=== PATIENT | male | born 1955 | race Caucasian/White ===

== ENCOUNTER 2022-09-19 17:46 | Inpatient (IN) | payer OTHER ==
[~2022-09-19] VITALS: Ht 165.1 cm; Wt 67.1 kg
--- NOTE | 2022-09-19 18:00 | NUR ---
The patient is [id number] home, found by roomate altered w/ initial BG 44, d10 given station captain. The patient is verbally responsive to his name. Denies pain. In room air. Respiration regular and unlabored. The patient is attached to the monitor. Will continue to monitor the patient.
--- NOTE | 2022-09-19 18:17 | NUR ---
THE PATIENT IS TAKEN TO CT [facility]IA [facility]
[2022-09-19 18:25] LABS: BASOPHILS % (AUTO) 0.3 % (0.0-2.0); EOSINOPHILS % (AUTO) 1.8 % (0.0-6.0); HEMATOCRIT 43 % (39-51); HEMOGLOBIN 14.8 g/dL (13.5-17.5); LYMPHOCYTES # (AUTO) 0.8 K/uL (0.8-4.8); LYMPHOCYTES % (AUTO) 7.7 % (20.0-44.0); MEAN CORPUSCULAR HGB CONC 34 g/dl (31.0-36.0); MEAN CORPUSCULAR VOLUME 90 fL (80-96); MONOCYTES # (AUTO) 0.7 K/uL (0.1-1.30); MONOCYTES % (AUTO) 6.5 % (2.0-12.0); NEUTROPHILS # (AUTO) 8.6 K/uL (1.8-8.9); NEUTROPHILS % (AUTO) 83.7 % (43.0-81.0); PLATELET COUNT (AUTO) 281 K/uL (150-450); WHITE BLOOD COUNT (AUTO) 10.2 K/uL (4.3-11.0)
[2022-09-19] MEDS ORDERED: Sodium Chloride 77 MEQ in IV 10% DEXTROSE 1,000 ML IV PRN (18:30)
--- NOTE | 2022-09-19 18:36 | NUR ---
THE PATIENT IS BACK FROM CT VIA [facility]
[2022-09-19 18:45] LABS: SERUM AMMONIA 21 umol/L (11-32)
[2022-09-19 18:50] LABS: ALANINE AMINOTRANSFERASE 22 U/L (12-78); ALBUMIN 3.6 g/dL (3.4-5.0); ALKALINE PHOSPHATASE 140 U/L (46-116); ASPARTATE AMINOTRANSFERASE 20 U/L (15-37); BILIRUBIN,DIRECT 0.1 mg/dL (0.0-0.2); BILIRUBIN,TOTAL 0.3 mg/dL (0.2-1.0); CALCIUM, SERUM 8.8 mg/dL (8.5-10.1); CARBON DIOXIDE 25 mmol/L (21-32); CHLORIDE 100 mmol/L (98-107); CREATININE 1.3 mg/dL (0.6-1.3); GLUCOSE 87 mg/dL (74-106); POTASSIUM 3.8 mmol/L (3.5-5.1); SODIUM SERUM 135 mmol/L (136-145); UREA NITROGEN, BLOOD 17 mg/dL (7-18)
[2022-09-19 18:51] LABS: ALCOHOL, BLOOD < 3 mg/dL (0-10)
[2022-09-19] MEDS ORDERED: NITR0.4T48 SL (19:04)
[2022-09-19] MEDS ORDERED: METF-442 PO (19:04)
[2022-09-19] MEDS ORDERED: ESCI10TA (19:04)
[2022-09-19] MEDS ORDERED: METO-357 PO (19:04)
[2022-09-19] MEDS ORDERED: ASPI-1169 PO (19:04)
[2022-09-19] MEDS ORDERED: INSU100I4 SQ (19:04)
[2022-09-19] MEDS ORDERED: GABA600T12 PO (19:04)
[2022-09-19] MEDS ORDERED: ALLO100T PO (19:04)
[2022-09-19] MEDS ORDERED: ARIP300S3 (19:04)
[2022-09-19] MEDS ORDERED: ATOR10TA PO (19:04)
[2022-09-19] MEDS ORDERED: AMLO-62 (19:04)
--- NOTE | 2022-09-19 19:07 | NUR ---
URINE COLLECTED AND SENT TO THE LAB
[2022-09-19 19:16] LABS: THYROID STIMULATING HORMONE 2.036 uIU/mL (0.358-3.74)
--- NOTE | 2022-09-19 19:16 | NUR ---
REPORT GIVEN TO NURSE MISTRY FOR YOLIS
[2022-09-19] MEDS ORDERED: DEXTROSE 50%-WATER 50 ML DISP.SYRIN ONE (19:17)
--- NOTE | 2022-09-19 19:23 | NUR ---
RECEIVED PT ASLEEP. CAME EARLIER WITH CC OF HYPOGLYCEMIA. DELIVERY COORDINATOR CHECKED LATEST BS-55. PT IS ATTACHED TO MONITOR. VITALS CHECKED. WAITING FOR MD'S ORDER
--- NOTE | 2022-09-19 19:30 | NUR ---
DR JARRETT ORDERED D50W 50CC IV PUSH. MEDS GIVEN USING IV RAJNI ON RIGHT FA G20
[2022-09-19] MEDS: SODIUM CHLORIDE IV SCH (19:31)
[2022-09-19] MEDS: D5 IV SCH (19:31)
[2022-09-19] MEDS: NACL IV SCH (19:31)
--- NOTE | 2022-09-19 19:42 | NUR ---
LEFT MESSAGE [phone] FOR PEER TO PEER WITH DR ORTIZ FROM [facility] AWAITING CALL BACK
[2022-09-19 20:14] LABS: BILIRUBIN,URINE NEGATIVE (NEGATIVE); COLOR,URINE YELLOW (YELLOW); LEUKOCYTE ESTERASE ,URINE NEGATIVE (NEGATIVE); NITRITE, URINE NEGATIVE (NEGATIVE); PH,URINE 6.5 (5.0-8.0); PROTEIN,URINE 3+ mg/dl (NEGATIVE); UGLUCOSE NEGATIVE (NEGATIVE); UROBILINOGEN,URINE 0.2 EU/dL (0.2)
[2022-09-19] MEDS ORDERED: DEXTROSE 50%-WATER 50 ML DISP.SYRIN IVP ONE (20:30)
--- NOTE | 2022-09-19 20:32 | NUR ---
REPEAT BS 177mg/dl AFTER 1 HR GIVING D50 W 50CC IV PUSH. AWARE.
[2022-09-19 20:40] LABS: BACTERIA,URINE Few /HPF (None Seen); SQUAMOUS EPITHELIAL CELL,UR Few /HPF (None Seen); WBC,URINE 0-2 /HPF (0-3)
[2022-09-19] MEDS ORDERED: IV D5/ 0.9% NACL 1,000 ML IV PRN (21:30)
[2022-09-19] MEDS ORDERED: ACETAMINOPHEN 325 MG TABLET PO PRN (21:30)
[2022-09-19] MEDS ORDERED: Z GUARD REMEDY 4 OZ OINT TP PRN (21:30)
[2022-09-19] MEDS ORDERED: ONDANSETRON HCL/PF 4 MG/2 ML VIAL IVP PRN (21:30)
[2022-09-19] MEDS ORDERED: MAG HYDROX/AL HYDROX/SIMETH 30 ML UDC PO PRN (21:30)
[2022-09-19] MEDS ORDERED: MAGNESIUM HYDROXIDE 30 ML UDC PO PRN (21:30)
--- NOTE | 2022-09-19 21:40 | NUR ---
MRSA SWAB COLLECTED AND SENT TO LAB. PATIENT'S BELONGINGS LIST DONE.
--- NOTE | 2022-09-19 22:12 | NUR ---
pt clear to transfer to 118-1
--- NOTE | 2022-09-19 22:45 | NUR ---
REPORT GIVEN TO NATALY ELIZONDO
[2022-09-19] MEDS ORDERED: CEFTRIAXONE 1GM BAG (ER ONLY) 50 ML IV ONE ×2 (22:51→23:02)
--- NOTE | 2022-09-19 22:58 | NUR ---
TRANSFERRED TO ROOM VIA ACLS PROTOCOL
--- NOTE | 2022-09-19 23:00 | NUR ---
RN OPEN NOTES RECEIVED PATIENT FROM ER VIA RWENDY AWAKE ,LETHARGIC ALERT /ORIENTED X 3, ON TELE SINUS RHYTHM ,CONSISTENCY DIET, IV D5NS @100 ML/HR Q4, ACCU CHECK Q4, SKIN ASSESSMENT DONE. JERRY CONTINUE TO MONITOR MENTAL STATUS. BED ALARM ON.
[2022-09-19] MEDS: BLOOD SUGAR DIAGNOSTIC 1 EACH STRIP IN SCH (23:31)
--- NOTE | 2022-09-20 00:17 | NUR ---
RN NOTE INFORM [facility] AGENT PT ADMISSION TEMP IS 94F AXILLARY WARM BLANKET APPLY REASSESS TEMP. IS 96F AXILLARY ADDITION WARM BLANKET APPLY RECEIVED ORDER FOR HOWARD GÓMEZ CARRIED OUT
[2022-09-20] MEDS: D5 IV SCH ×2 (00:36→05:42)
[2022-09-20] MEDS: SODIUM CHLORIDE IV SCH ×2 (00:36→05:42)
[2022-09-20] MEDS: NACL IV SCH ×2 (00:36→05:42)
[2022-09-20] MEDS: BLOOD SUGAR DIAGNOSTIC 1 EACH STRIP IN SCH ×5 (00:57→12:41)
--- NOTE | 2022-09-20 01:01 | NUR ---
RN NOTE CLARIFIED WITH CHEIKH FERRER THAT PATIENT HAS 2 IVF ORDERS. CHEIKH FERRER WOULD LIKE TO CONTINUE D5NS@100. ORDERS CARRIED OUT. UPDATED HIM THAT BLOOD SUGAR IS 175.
[2022-09-20 05:47] LABS: BASOPHILS % (AUTO) 0.4 % (0.0-2.0); EOSINOPHILS % (AUTO) 2.4 % (0.0-6.0); HEMATOCRIT 36 % (39-51); HEMOGLOBIN 11.8 g/dL (13.5-17.5); LYMPHOCYTES # (AUTO) 1.5 K/uL (0.8-4.8); MEAN CORPUSCULAR HGB CONC 33 g/dl (31.0-36.0); MEAN CORPUSCULAR VOLUME 90 fL (80-96); MONOCYTES # (AUTO) 0.6 K/uL (0.1-1.30); MONOCYTES % (AUTO) 7.7 % (2.0-12.0); NEUTROPHILS # (AUTO) 5.9 K/uL (1.8-8.9); NEUTROPHILS % (AUTO) 71.5 % (43.0-81.0); PLATELET COUNT (AUTO) 229 K/uL (150-450); RED BLOOD CELL COUNT(AUTO) 3.98 MIL/uL (4.5-6.0); WHITE BLOOD COUNT (AUTO) 8.3 K/uL (4.3-11.0)
[2022-09-20 06:30] LABS: CALCIUM, SERUM 8.1 mg/dL (8.5-10.1); CREATININE 0.9 mg/dL (0.6-1.3); MAGNESIUM 1.9 mg/dL (1.8-2.4); PHOSPHORUS 3.4 mg/dL (2.5-4.9); POTASSIUM 3.7 mmol/L (3.5-5.1)
[2022-09-20 06:46] LABS: THYROID STIMULATING HORMONE 0.986 uIU/mL (0.358-3.74)
--- NOTE | 2022-09-20 07:52 | NUR ---
RN CLOSING NOTE A/OX3. ROM AIR. SINUS RHYTHM ON THE MONITOR. BLOOD SUGAR MONITOR. NO EPISODE HYPOGLYCEMIA. IVF D5NS@100 RUNNING. PLAN FOR POSSIBLE DC.
[2022-09-20 08:00] VITALS: BP 91/51; TEMP 97.7
[2022-09-20] MEDS ORDERED: ENOXAPARIN SODIUM 40 MG/0.4 ML DISP.SYRIN SQ SCH (09:00)
[2022-09-20] MEDS ORDERED: PANTOPRAZOLE 40 MG VIAL IV SCH (09:00)
[2022-09-20] MEDS ORDERED: ARIP10TA57 PO (10:08)
[2022-09-20] MEDS ORDERED: INSU100V7 SQ (10:08)
[2022-09-20] MEDS ORDERED: RIVA10TA PO (10:08)
--- NOTE | 2022-09-20 10:17 | NUR ---
WOUND CARE CONSULT: PT PRESENTS WITH CALLUSES TO ELBOWS AND RED RASH TO PERINEUM/SCROTAL AREA, PRESENT ON ADMISSION. RECOMMENDATIONS MADE FOR SKIN CARE AND PROTECTION. DISCUSSED WITH NURSING STAFF. MD IN AGREEMENT WITH PLAN OF CARE.
[2022-09-20 12:00] VITALS: BP 112/63; TEMP 98.2
--- NOTE | 2022-09-20 12:13 | NUR ---
PER DR. GOLDBERG PATIENT MIGHT BE DISCHARGE TODAY AFTERNOON
--- NOTE | 2022-09-20 13:00 | NUR ---
PATIENT IS DISCHARGED, I CALLED HIS DAUGHTER SHANNAN AT [phone] SHE WILL COME AND PICK HIM UP TODAY AFTERNOON.
--- NOTE | 2022-09-20 14:20 | NUR ---
PATIENT DISCHARGED HOME, PATIENT AMBULATORY WITH WALKING DRAGLINE OILER, BUT HE WAS TAKEN O LOPPY TO DAUGHTER'S PRIVATE CAR BY WHEELCHAIR. TELEMETRY BOX REMOVED, IV SITE REMOVED, ALL DC INSTRUCTIONS GIVEN, ALL DUE MEDS ADMINISTERED, DIABETIC EDUCATION GIVEN (DIABETIC FOOT CARE, S/S OF HYPO AND HYPERGLYCEMIA), I OFFERED IF HE WANTS HOME HEALTH SO WE CAN ARRANGE FOR HIM, PATIENT REFUSED AND STATED THAT HE HAS A CAREGIVER AND WILL DO IT FOR HIM.
--- NOTE | 2022-09-20 14:30 | NUR ---
SW Consult: SW consult requested for Substance abuse. Pt is a 67-year-old male. Pt was brought to the hospital due to substance withdrawal. Pt appeared to be alert and oriented x3 (self, place, situation). Pt was cooperative. 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 Pt reported he has not received any treatment for his addiction. He did state that he lives at home alone located at [address], [place] [address] [place]. SW assessed for suicidal or homicidal ideation and pt denied. Pt denied visual/auditory hallucinations. Pt needs assistance with some of his ADLs and receives home support by his caregiver Chasidy. Chasidy assists pt. with his ADLs Saturday through Saturday for four hours. Pt stated that his daughter supports him if he requests additional assistance. Pt informed SW that he was prescribed medication by his provider for depression but did not remember the name of the medication. Pt presented no symptoms of depression episode. Pt requested additional support for resources/services support. SW provided pt. with those resources/services. Pt will follow-up upon discharge once medically cleared. DC PLAN: Pt will return to his apartment located at [address], [place] [address]. Substance Abuse resources provided included: [facility] Substance Abuse Self-Helpline ([facility]) ; [facility] [address] [facility]. [place] [id number] ; [facility] [address] [facility] [address] ; [facility] [address] [facility] [address] ; [facility] [address] [facility] [address] ; [facility] [address] [facility] [address] ; [facility] [address] [facility] [address] ; [facility] Substance Abuse Helpline([facility])-[facility] ; [facility] ; [facility] [place]; [facility] [place]; [facility]; [facility]; [facility] [place]; [facility]; [facility] [place]; [facility]. [place]; Alcoholics Anonymous -[facility]; [facility] ; Marijuana Anonymous -[facility]; Narcotics Anonymous www.na.org; Food Pantries: [employer] , [employer] , [facility] [address] [place] [address] Housing Resources: [place] [facility] [email or web address]; [facility], [address] [place] [address]. Addendum: 09/20/22 at 1501 by HARLEY CHARLES Homeless waiver form was placed in the chart.
[2022-09-20] MEDS ORDERED: CLOTRIMAZOLE 1% 15 GM TUBE TP SCH (17:00)
== END 2022-09-20 14:20 | disposition home or self-care (01) | DRG 812 ==
LOC: ER 17:48 → TELE1 22:37
PROVIDERS: ADMIT Nurse Practitioner Acute Care; ATTEND Internal Medicine
DX: T38.3X1A Poisoning by insulin and oral hypoglycemic [antidiabetic] drugs, accidental (unintentional), initial encounter (principal); G92.8 Other toxic encephalopathy; E11.649 Type 2 diabetes mellitus with hypoglycemia without coma; E11.40 Type 2 diabetes mellitus with diabetic neuropathy, unspecified; Y92.9 Unspecified place or not applicable; F17.210 Nicotine dependence, cigarettes, uncomplicated; I25.10 Atherosclerotic heart disease of native coronary artery without angina pectoris; I10 Essential (primary) hypertension; Z79.4 Long term (current) use of insulin; Z79.84 Long term (current) use of oral hypoglycemic drugs; Z79.82 Long term (current) use of aspirin; Z79.899 Other long term (current) drug therapy; E78.5 Hyperlipidemia, unspecified; F15.90 Other stimulant use, unspecified, uncomplicated; F32.A Depression, unspecified; Z98.890 Other specified postprocedural states; Z79.01 Long term (current) use of anticoagulants
CPT/HCPCS: 36415; 70450-TC; 71045-TC; 80048-TC; 80061-TC; 80076-TC; 81001; 82140-TC; 82962-TC; 83735-TC; 84100-TC; 84443-TC; 84484-TC; 85025-TC; 85730-TC; 87081-TC; C9113; G0378; G0480; J0696; J1650; J3490; J7042

== ENCOUNTER 2024-12-14 10:07 | Inpatient (IN) | payer MEDICAID, OTHER ==
[~2024-12-14] VITALS: Ht 162.6 cm; Wt 58.7 kg
[~2024-12-14 10:07] MED LIST: ALLO100T PO; ARIP10TA57 PO; ASPI-1169 PO; ATOR10TA PO; GABA600T12 PO; INSU100I4 SQ; INSU100V7 SQ; METF-442 PO; METO-357 PO; NITR0.4T48 SL; RIVA10TA PO
[2024-12-14] MEDS: IV NS 0.9% 1,000 ML BAG IV ONE (10:28)
[2024-12-14 10:53] LABS: PLATELET COUNT (AUTO) 309 K/uL (150-450); RED BLOOD CELL COUNT(AUTO) 3.69 MIL/uL (4.5-6.0); RED CELL DISTRIBUTION WIDTH 14.7 % (11.5-15.0); WHITE BLOOD COUNT (AUTO) 7.5 K/uL (4.3-11.0)
[2024-12-14 11:01] LABS: CALCIUM, SERUM 8.5 mg/dL (8.5-10.1); CREATININE 1.8 mg/dL (0.6-1.3); SODIUM SERUM 136 mmol/L (136-145); UREA NITROGEN, BLOOD 29 mg/dL (7-18)
[2024-12-14 11:05] LABS: ASPARTATE AMINOTRANSFERASE 18 U/L (15-37); TOTAL PROTEIN, SERUM 7.2 g/dL (6.4-8.2)
[2024-12-14 11:07] LABS: INR 1.1 (0.91-1.10)
[2024-12-14 11:10] LABS: LACTIC ACID 1.5 mmol/L (0.4-2.0)
[2024-12-14 15:00] VITALS: BP 127/77; TEMP 97.9; O2SAT 100
[2024-12-14] MEDS ORDERED: Z GUARD REMEDY 4 OZ OINT TP PRN (15:00)
[2024-12-14] MEDS ORDERED: DEXTROSE 50%-WATER 50 ML DISP.SYRIN IV PRN (15:00)
[2024-12-14] MEDS ORDERED: ONDANSETRON HCL/PF 4 MG/2 ML VIAL IVP PRN (15:00)
[2024-12-14] MEDS ORDERED: CLONIDINE HCL 0.1 MG TABLET PO PRN (15:00)
[2024-12-14] MEDS ORDERED: MAGNESIUM HYDROXIDE 30 ML UDC PO PRN (15:00)
[2024-12-14] MEDS ORDERED: MAG HYDROX/AL HYDROX/SIMETH 30 ML UDC PO PRN (15:00)
[2024-12-14] MEDS ORDERED: ACETAMINOPHEN 325 MG TABLET PO PRN (15:00)
[2024-12-14] MEDS: ASPIRIN 325 MG TABLET PO SCH (15:48)
[2024-12-14] MEDS: BLOOD SUGAR DIAGNOSTIC 1 EACH STRIP VI SCH (17:40)
[2024-12-14] MEDS: INSULIN REGULAR, HUMAN 100 UNIT/ML 3 ML VIAL SQ PRN (17:40)
[2024-12-14 18:00] VITALS: BP 122/80; TEMP 98.1; O2SAT 96
[2024-12-14 20:00] VITALS: BP 126/82; TEMP 97.7; O2SAT 98
[2024-12-14] MEDS: *INSULIN REGULAR(HUMULIN R)HUM 100 UNIT/ML VIAL SQ PRN (21:56)
[2024-12-14 22:55] LABS: APPEARANCE,URINE CLEAR (CLEAR); BLOOD, URINE TRACE-INTA Ery/uL (NEGATIVE); LEUKOCYTE ESTERASE ,URINE NEGATIVE (NEGATIVE); NITRITE, URINE NEGATIVE (NEGATIVE); UGLUCOSE 2+ mg/dL (NEGATIVE)
[2024-12-14 23:11] LABS: ADD URINE CULTURE NO; SQUAMOUS EPITHELIAL CELL,UR Rare /HPF (None Seen)
[2024-12-14 23:26] LABS: BARBITURATE, URINE NEGATIVE (NEGATIVE); BENZODIAZEPINE, URINE NEGATIVE (NEGATIVE); CANNABINOID, URINE NEGATIVE (NEGATIVE); COCCAINE, URINE NEGATIVE (NEGATIVE); OPIATE, URINE NEGATIVE (NEGATIVE)
[2024-12-14 23:27] LABS: AMPHETAMINE, URINE POSITIVE (NEGATIVE)
[2024-12-15] VITALS: BP 122/88; TEMP 97.5; O2SAT 99
[2024-12-15 04:00] VITALS: BP 137/86; TEMP 97.5; O2SAT 99
[2024-12-15 05:51] LABS: PLATELET COUNT (AUTO) 354 K/uL (150-450); RED BLOOD CELL COUNT(AUTO) 4.17 MIL/uL (4.5-6.0); RED CELL DISTRIBUTION WIDTH 14.5 % (11.5-15.0); WHITE BLOOD COUNT (AUTO) 7.1 K/uL (4.3-11.0)
[2024-12-15 05:57] LABS: CALCIUM, SERUM 9.1 mg/dL (8.5-10.1); CREATININE 1.3 mg/dL (0.6-1.3); PHOSPHORUS 3.6 mg/dL (2.5-4.9); SODIUM SERUM 137.0 mmol/L (136-145); UREA NITROGEN, BLOOD 22.0 mg/dL (7-18)
[2024-12-15 07:00] VITALS: BP 116/80; TEMP 98.4; O2SAT 99
[2024-12-15 16:00] VITALS: BP 158/85; TEMP 98.1; O2SAT 97
[2024-12-15] MEDS ORDERED: ESCI20TA PO (16:19)
[2024-12-15] MEDS ORDERED: FLUT1DIS3 IH (16:19)
[2024-12-15] MEDS ORDERED: INSU100I26 SQ (16:19)
[2024-12-15] MEDS ORDERED: AMLO1CAP PO (16:19)
[2024-12-15] MEDS ORDERED: ALBU8.5H8 IH (16:19)
[2024-12-15] MEDS ORDERED: ATOR80TA PO (16:19)
[2024-12-15] MEDS ORDERED: DULA1.5P SQ (16:19)
[2024-12-15] MEDS ORDERED: FERR325T24 PO (16:19)
[2024-12-15] MEDS ORDERED: NALO4SPR NS (16:19)
[2024-12-15] MEDS ORDERED: ARIP10TA9 PO (16:19)
[2024-12-15] MEDS ORDERED: TIOT4MIS2 IH (16:19)
[2024-12-15 20:00] VITALS: BP 116/77; TEMP 98.2; O2SAT 99
[2024-12-15] MEDS ORDERED: ALBUTEROL SULFATE 8 GM HFA.AER.AD IH PRN (22:30)
[2024-12-16 06:37] LABS: PLATELET COUNT (AUTO) 346 K/uL (150-450); RED BLOOD CELL COUNT(AUTO) 4.11 MIL/uL (4.5-6.0); RED CELL DISTRIBUTION WIDTH 14.4 % (11.5-15.0); WHITE BLOOD COUNT (AUTO) 7.2 K/uL (4.3-11.0)
[2024-12-16 06:44] LABS: CALCIUM, SERUM 9.4 mg/dL (8.5-10.1); CREATININE 1.3 mg/dL (0.6-1.3); SODIUM SERUM 136.0 mmol/L (136-145); UREA NITROGEN, BLOOD 27.0 mg/dL (7-18)
[2024-12-16] MEDS ORDERED: ALBUTEROL FS 2.5 MG/0.5 ML VIAL.NEB NEB PRN (07:30)
[2024-12-16 08:00] VITALS: BP 122/79; TEMP 98.1; O2SAT 98
[2024-12-16] MEDS: ARIPIPRAZOLE 5 MG TABLET PO SCH (08:34)
[2024-12-16] MEDS: ALLOPURINOL 100 MG TABLET PO SCH (08:35)
[2024-12-16] MEDS: BENAZEPRIL HCL 20 MG TABLET PO SCH (08:35)
[2024-12-16] MEDS: GABAPENTIN 300 MG CAPSULE PO SCH (08:36)
[2024-12-16] MEDS: AMLODIPINE BESYLATE 10 MG TABLET PO SCH (08:36)
[2024-12-16] MEDS: FERROUS SULFATE (325 MG) 325 MG/TAB TABLET PO SCH (08:36)
[2024-12-16] MEDS: ESCITALOPRAM OXALATE (10 MG) 10 MG TABLET PO SCH (08:36)
[2024-12-16] MEDS: BUDESONIDE RESPULE INH 0.5 MG/2 ML AMPUL.NEB HHN SCH (09:56)
[2024-12-16] MEDS: IPRATROPIUM NEB FS 0.5 MG/2.5 ML AMPUL.NEB NEB SCH (09:56)
[2024-12-16 09:57] VITALS: O2SAT 99
[2024-12-16] MEDS: ALBUTEROL FS 2.5 MG/3 ML VIAL.NEB NEB SCH (09:57)
[2024-12-16 13:05] VITALS: O2SAT 97
[2024-12-16 13:20] VITALS: O2SAT 100
[2024-12-16 16:00] VITALS: BP 97/60; TEMP 97.9; O2SAT 98
[2024-12-16] MEDS ORDERED: ATORVASTATIN 40 MG TABLET PO SCH (22:00)
== END 2024-12-16 17:49 | disposition home or self-care (01) | DRG 420 ==
LOC: ER 10:10 → TELE 14:04 → MED 12-15 09:18
PROVIDERS: ADMIT Internal Medicine; ATTEND Internal Medicine
DX: E11.00 Type 2 diabetes mellitus with hyperosmolarity without nonketotic hyperglycemic-hyperosmolar coma (NKHHC) (principal); N17.0 Acute kidney failure with tubular necrosis; G92.8 Other toxic encephalopathy; I21.A1 Myocardial infarction type 2; E11.65 Type 2 diabetes mellitus with hyperglycemia; E86.0 Dehydration; I10 Essential (primary) hypertension; Z98.890 Other specified postprocedural states; F15.10 Other stimulant abuse, uncomplicated; Z86.61 Personal history of infections of the central nervous system; E78.5 Hyperlipidemia, unspecified; F17.200 Nicotine dependence, unspecified, uncomplicated; Z79.84 Long term (current) use of oral hypoglycemic drugs; Z79.899 Other long term (current) drug therapy; Z79.51 Long term (current) use of inhaled steroids; Z79.85 Long-term (current) use of injectable non-insulin antidiabetic drugs
CPT/HCPCS: 36415; 70450-TC; 71045-TC; 80048-TC; 80076-TC; 81001; 82962-TC; 83605-TC; 83735-TC; 84100-TC; 84484-TC; 85025-TC; 85730-TC; 87040-TC; 87086-TC; 92526; 92611; 93307-TC; 93970-TC; 97110-TC; 97116-TC; 97530-TC; G0378; J1815; J7030